=== PATIENT | female | born 1990 | race Caucasian/White ===

== ENCOUNTER 2024-05-18 10:05 | Inpatient (IN) | payer OTHER ==
[2024-05-18 10:35] VITALS: BMI 25.7
[2024-05-18] MEDS ORDERED: NICOTINE 21 MG/24 HOURS TOPICAL PATCH TD PRN (12:09)
[2024-05-18] MEDS ORDERED: LOPERAMIDE HCL 2 MG CAPSULE PO PRN (12:09)
[2024-05-18] MEDS ORDERED: IBUPROFEN 600 MG TABLET (FP) PO PRN (12:09)
[2024-05-18] MEDS ORDERED: METHOCARBAMOL 500 MG TABLET PO PRN (12:09)
[2024-05-18] MEDS ORDERED: BENZOCAINE/MENTHOL (CHLORASEPTIC ) LOZENGE MM PRN (12:09)
[2024-05-18] MEDS ORDERED: DICYCLOMINE HCL 10 MG CAPSULE PO PRN (12:09)
[2024-05-18] MEDS ORDERED: NALOXONE (NARCAN) HCL 4 MG/0.1 ML SPRAY NS PRN (12:09)
[2024-05-18] MEDS ORDERED: ACETAMINOPHEN 325 MG TABLET (FP) PO PRN (12:09)
[2024-05-18] MEDS ORDERED: NICOTINE POLACRILEX 4 MG GUM BUC PRN (12:09)
[2024-05-18] MEDS ORDERED: IBUPROFEN 400 MG TABLET (FP) PO PRN (12:09)
[2024-05-18] MEDS ORDERED: BISMUTH SUBSALICYLATE 524 MG/30 ML PO PRN (12:09)
[2024-05-18] MEDS ORDERED: guaiFENesin 600 MG TABLET.ER (FP) PO PRN (12:09)
[2024-05-18] MEDS ORDERED: BENZONATATE 200 MG CAPSULE PO PRN (12:09)
[2024-05-18] MEDS ORDERED: NALOXONE HCL 0.4 MG/ML VIAL IM PRN (12:09)
[2024-05-18] MEDS ORDERED: MAG HYDROX/AL HYDROX/SIMETH 30 ML UNIT-DOSE CUP PO PRN (12:09)
[2024-05-18] MEDS ORDERED: POLYETHYLENE GLYCOL (HEALTHYLAX) 3350 17 GM PACKET PO PRN (12:09)
[2024-05-18] MEDS ORDERED: ONDANSETRON *ODT* 4 MG TABLET SL PRN (12:09)
[2024-05-18] MEDS ORDERED: MAGNESIUM HYDROX 2400MG/30ML ORAL SUSPENSION 30 ML CUP PO PRN (12:09)
[2024-05-18] MEDS ORDERED: chlordiazePOXIDE HCL 25 MG CAPSULE ONE (12:45)
[2024-05-18] MEDS: chlordiazePOXIDE HCL 25 MG CAPSULE PO ONE (12:47)
[2024-05-18] MEDS: chlordiazePOXIDE HCL 25 MG CAPSULE PO SCH (17:22)
[2024-05-18] MEDS: MELATONIN 5 MG TABLETS PO SCH (22:29)
[2024-05-18] MEDS: THIAMINE 100 MG TABLET PO SCH (22:29)
[2024-05-19] MEDS: NICOTINE 14 MG/24 HOURS TOPICAL PATCH TD SCH (10:12)
[2024-05-19] MEDS: PRENATAL VITAMINS W/ FOLIC ACID TABLET (FP) PO SCH (10:13)
[2024-05-19] MEDS: METHOCARBAMOL 500 MG TABLET PO PRN (10:23)
[2024-05-19 11:18] LABS: CHLORIDE 106 mmol/L (98-107); POTASSIUM 3.8 mmol/L (3.5-5.1); SODIUM 139 mmol/L (136-145)
[2024-05-19 11:19] LABS: HEMATOCRIT 39.3 % (32.4-45.2); HEMOGLOBIN 13.2 GM/dL (10.7-15.3); MCH 30.5 pg (25.7-33.7); MCHC 33.7 g/dl (32.0-36.0); MEAN CELL VOLUME 90.6 fl (80-96); PLATELET COUNT 238 10^3/uL (134-434); RBC 4.33 M/mm3 (3.60-5.2); RDW 13.6 % (11.6-15.6); WHITE BLOOD COUNT 6.1 K/mm3 (4.0-10.0)
[2024-05-19 11:21] LABS: BLOOD UREA NITROGEN 14.4 mg/dL (7-18); CALCIUM 8.7 mg/dL (8.5-10.1)
[2024-05-19 11:22] LABS: ALBUMIN 3.3 g/dl (3.4-5.0); ANION GAP 4 mmol/L (4-13); CO2 29 mmol/L (21-32); GLUCOSE,RANDOM 90 mg/dL (74-106)
[2024-05-19 11:24] LABS: SGPT/ALT 20 U/L (13-61)
[2024-05-19 11:25] LABS: CREATININE 0.8 mg/dL (0.55-1.3); SGOT/AST 22 U/L (15-37)
[2024-05-19 11:26] LABS: BILIRUBIN,TOTAL 0.6 mg/dL (0.2-1); TOT PROT 6.1 g/dl (6.4-8.2)
[2024-05-19 11:27] LABS: ALK PHOS 77 U/L (45-117)
[2024-05-19 12:30] LABS: HIV INTERPRETATION NEGATIVE (NEGATIVE)
[2024-05-19] MEDS: hydrOXYzine PAMOATE 25 MG CAPSULE (FP) PO PRN (18:42)
[2024-05-20] MEDS: chlordiazePOXIDE HCL 25 MG CAPSULE PO SCH (05:36)
[2024-05-20] MEDS: GABAPENTIN 100 MG CAPSULE PO SCH (13:20)
[2024-05-20] MEDS: chlordiazePOXIDE HCL 25 MG CAPSULE PO PRN (13:21)
[2024-05-20] MEDS ORDERED: GABAPENTIN 100 MG CAPSULE PO SCH (14:00)
[2024-05-20] MEDS: MELATONIN 5 MG TABLETS PO SCH (22:08)
[2024-05-21] MEDS ORDERED: chlordiazePOXIDE HCL 10 MG CAPSULE PO PRN
[2024-05-21] MEDS: chlordiazePOXIDE HCL 10 MG CAPSULE PO SCH (05:49)
[2024-05-22] MEDS: chlordiazePOXIDE HCL 10 MG CAPSULE PO SCH (05:49)
[2024-05-22] MEDS: hydrOXYzine PAMOATE 25 MG CAPSULE (FP) PO ONE (15:19)
[2024-05-22] MEDS: GABAPENTIN 300 MG CAPSULE PO SCH (21:23)
[2024-05-23] MEDS: chlordiazePOXIDE HCL 10 MG CAPSULE PO ONE (05:38)
[2024-05-24 09:21] VITALS: RESP 18
[2024-05-24 12:39] VITALS: BP 157/82; PULSE 83; TEMP 97.8
== END 2024-05-24 13:00 | disposition other institution (70) | DRG 775 ==
LOC: YASAS 10:05 → Y3N 12:29
PROVIDERS: ADMIT Allergy & Immunology; ATTEND Surgery
PROC: HZ2ZZZZ Detoxification Services for Substance Abuse Treatment (ICD-10-PCS; principal; 2024-05-18)
DX: F10.230 Alcohol dependence with withdrawal, uncomplicated (principal); F12.20 Cannabis dependence, uncomplicated; F17.210 Nicotine dependence, cigarettes, uncomplicated; F19.24 Other psychoactive substance dependence with psychoactive substance-induced mood disorder; F43.10 Post-traumatic stress disorder, unspecified; Z88.0 Allergy status to penicillin; Z88.8 Allergy status to other drugs, medicaments and biological substances
CPT/HCPCS: 36415; 80053; 80305; 80307; 81025; 85027; 86780; 86803; 87389; 87811; 93005; 93010

== ENCOUNTER 2024-05-24 13:05 | Inpatient (IN) | payer OTHER ==
[2024-05-24] MEDS ORDERED: NICOTINE POLACRILEX 4 MG LOZENGE BC PRN (14:58)
[2024-05-24] MEDS ORDERED: MAGNESIUM HYDROX 2400MG/30ML ORAL SUSPENSION 30 ML CUP PO PRN (14:58)
[2024-05-24] MEDS ORDERED: NALOXONE HCL 0.4 MG/ML VIAL IVPUSH PRN (14:58)
[2024-05-24] MEDS ORDERED: NICOTINE POLACRILEX 4 MG GUM BUC PRN (14:58)
[2024-05-24] MEDS ORDERED: ACETAMINOPHEN 325 MG TABLET (FP) PO PRN (14:58)
[2024-05-24] MEDS ORDERED: guaiFENesin 600 MG TABLET.ER (FP) PO PRN (14:58)
[2024-05-24] MEDS ORDERED: POLYETHYLENE GLYCOL (HEALTHYLAX) 3350 17 GM PACKET PO PRN (14:58)
[2024-05-24] MEDS ORDERED: LOPERAMIDE HCL 2 MG CAPSULE PO PRN (14:58)
[2024-05-24] MEDS ORDERED: BENZOCAINE/MENTHOL (CHLORASEPTIC ) LOZENGE MM PRN (14:58)
[2024-05-24] MEDS ORDERED: IBUPROFEN 400 MG TABLET (FP) PO PRN (14:58)
[2024-05-24] MEDS ORDERED: MAG HYDROX/AL HYDROX/SIMETH 30 ML UNIT-DOSE CUP PO PRN (14:58)
[2024-05-24] MEDS ORDERED: NALOXONE (NARCAN) HCL 4 MG/0.1 ML SPRAY NS PRN (14:58)
[2024-05-24] MEDS ORDERED: IBUPROFEN 600 MG TABLET (FP) PO PRN (14:58)
[2024-05-24] MEDS ORDERED: BENZONATATE 200 MG CAPSULE PO PRN (14:58)
[2024-05-24] MEDS: PRENATAL VITAMINS W/ FOLIC ACID TABLET (FP) PO SCH (15:20)
[2024-05-24] MEDS: hydrOXYzine PAMOATE 25 MG CAPSULE (FP) PO PRN (18:00)
[2024-05-24] MEDS: METHOCARBAMOL 500 MG TABLET PO PRN (18:00)
[2024-05-24] MEDS: MELATONIN 5 MG TABLETS PO SCH (22:21)
[2024-05-24] MEDS: THIAMINE 100 MG TABLET PO SCH (22:21)
[2024-05-25] MEDS: NICOTINE 14 MG/24 HOURS TOPICAL PATCH TD PRN (09:51)
[2024-05-26] MEDS: GABAPENTIN 300 MG CAPSULE PO SCH (13:51)
[2024-05-27] MEDS: hydrOXYzine PAMOATE 50 MG CAPSULE (FP) PO PRN (17:05)
[2024-05-28 11:29] LABS: INR 0.87 (0.83-1.09); PROTHROMBIN TIME (PATIENT) 10.1 SEC (9.7-13.0)
[2024-05-28] MEDS: GABAPENTIN 400 MG CAPSULE PO SCH (21:19)
[2024-05-29] MEDS: CHOLECALCIFEROL (VIT D3) 400 UNIT (10 MCG) TABLET PO SCH (09:56)
[2024-05-29] MEDS: NALTREXONE HCL 50 MG TABLET PO ONE (09:57)
[2024-05-29] MEDS: ARIPiprazole 5 MG TABLET PO SCH (15:53)
[2024-05-29] MEDS: hydrOXYzine PAMOATE 50 MG CAPSULE (FP) PO PRN (15:53)
[2024-05-30] MEDS: NALTREXONE HCL 50 MG TABLET PO SCH (10:09)
[2024-05-31] MEDS: METHOCARBAMOL 500 MG TABLET PO PRN (14:29)
[2024-06-06] MEDS: ARIPiprazole 2 MG TABLET PO SCH (09:56)
[2024-06-07] MEDS ORDERED: ARIPiprazole 2 MG TABLET PO SCH (07:44)
[2024-06-07] MEDS: ARIPiprazole 5 MG TABLET PO SCH (09:52)
[2024-06-08] MEDS: ARIPiprazole 5 MG TABLET PO SCH (06:04)
[2024-06-09] MEDS: ARIPiprazole 5 MG TABLET PO SCH (06:05)
[2024-06-09] MEDS ORDERED: ARIPiprazole 5 MG TABLET PO SCH (10:00)
[2024-06-10] MEDS: METHOCARBAMOL 500 MG TABLET PO PRN (12:47)
[2024-06-13] MEDS: NALTREXONE MICROSPHERES (VIVITROL) 380 MG DISP.SYRIN IM ONE (14:45)
[2024-06-14 06:49] VITALS: BP 113/70; PULSE 82; RESP 16; TEMP 97.2
== END 2024-06-14 10:45 | disposition home or self-care (01) | DRG 772 ==
LOC: YASAS 13:05 → Y3NR 13:07 → Y5N 05-25 17:12
PROVIDERS: ADMIT Allergy & Immunology; ATTEND Psychiatry & Neurology Pain Medicine
PROC: HZ42ZZZ Group Counseling for Substance Abuse Treatment, Cognitive-Behavioral (ICD-10-PCS; principal; 2024-05-24)
DX: F10.20 Alcohol dependence, uncomplicated (principal); F12.20 Cannabis dependence, uncomplicated; F17.210 Nicotine dependence, cigarettes, uncomplicated; F19.24 Other psychoactive substance dependence with psychoactive substance-induced mood disorder; F43.10 Post-traumatic stress disorder, unspecified
CPT/HCPCS: 36415; 82140; 82306; 83735; 85610; J2315